=== PATIENT | female | born 1985 | race Caucasian/White ===

== ENCOUNTER 2019-01-16 16:54 | Emergency (ER) | payer OTHER ==
[2019-01-16 17:06] VITALS: BP 116/64; RESP 18; TEMP 98.6
--- NOTE | 2019-01-16 18:25 | ED ---
General Adult HPI - General Chief complaint: Dental/Oral Stated complaint: dental abscess Time Seen by Provider: 01/16/19 17:11 Source: patient, RN notes reviewed, old records reviewed Mode of arrival: ambulatory Limitations: no limitations - History of Present Illness Initial comments: 33-year-old female patient presents ED with dental abscess. Patient reports that she has pain and swelling around her 29th tooth. Patient was seen by her primary care physician approximate 4 days ago and placed on penicillin. Patient states that the swelling has gotten worse. Patient was seen by her primary care today and presented to ED for abscess drainage. Patient denies any other complaints this time. Denies any chest pain shortness breath abdominal pain na usea vomiting diarrhea, fevers or chills. Patient states that there is no way that she can be . Systemic: Pt denies fatigue, fever/chills, rash. Pt denies weakness, night sweats, weight loss. Neuro: Pt denies headache, visual disturbances, syncope or pre-syncope. HEENT: Pt denies ocular discharge or irritation, otalgia, rhinorrhea, pharyngitis or notable lymphadenopathy. Cardiopulmonary: Pt denies chest pain, SOB, heart palpitations, dyspnea on exertion. Abdominal/GI: Pt denies abdominal pain, n/v/d. : Pt denies dysuria, burning w/ urination, frequency/urgency. Denies new onset urinary or bowel incontinence. MSK: Pt denies myalgia, loss of strength or function in extremities. Neuro: Pt denies new onset weakness, paresthesias. - Related Data Previous Rx's Medication Instructions Recorded Clindamycin [Cleocin] 450 mg PO Q8HR 7 Days capsule 01/16/19 Allergies Allergy/AdvReac Type Severity Reaction Status Date / Time No Known Allergies Allergy Verified 01/16/19 18:42 Review of Systems ROS Statement: Those systems with pertinent positive or pertinent negative responses have been documented in the HPI. ROS Other: All systems not noted in ROS Statement are negative. Past Medical History Past Medical History: No Reported History History of Any Multi-Drug Resistant Organisms: None Reported Past Surgical History: Adenoidectomy, Tonsillectomy Smoking Status: Current every day smoker Past Alcohol Use History: Occasional Past Drug Use History: Marijuana General Exam - General Exam Comments Initial Comments: Constitutional: NAD, AOX3, Pt has pleasant affect. HEENT: NC/AT, trachea midline, neck supple, no lymphadenopathy. Posterior pharynx non erythematous, without exudates. External ears appear normal, without discharge. Mucous membranes moist. Eyes PERRLA, EOM intact. There is no scleral icterus. No pallor noted. Mild amount of swelling and erythema noted at 29th tooth, mild tenderness to palpation, small amount of fluctuance. Incision drainage revealed a small amount of pus. Cardiopulmonary: RRR, no murmurs, rubs or gallops, no JVD noted. Lungs CTAB in anterior and posterior priest. No peripheral edema. Abdominal exam: Abdomen soft and non-distended. Abdomen non-tender to palpation in all 4 quadrants. Bowel sounds active in LLQ. No hepatosplenomegaly. No ecchymosis Neuro: CN II-XII grossly intact. No nuchal rigidity. No raccon eyes, no zamora sign, no hemotympanum. No cervical spinal tenderness. MSK: No posterior calf tenderness bilaterally, homans sign negative bilaterally. Posterior tibialis and radial pulse +2 bilaterally. Sensation intact in upper and lower extremities. Full active ROM in upper and lower extremities, 5/5 stregnth. Limitations: no limitations Course Vital Signs 01/16/19 17:00 Temperature 98.6 F Pulse Rate 121 H Respiratory 18 Rate Blood Pressure 116/64 O2 Sat by Pulse 99 Oximetry Procedures - Incision & Drainage Consent Obtained: verbal consent Indication: dental abscess Site: other (29th tooth) Size (cm): 1 Needle Aspiration Performed?: Yes I&D Drainage Obtained: Pus, Blood Patient Tolerated Procedure: well Medical Decision Making - Medical Decision Making 33-year-old female patient presents ED with dental abscess. Patient reports that she has pain and swelling around her 29th tooth. Patient was seen by her primary care physician approximate 4 days ago and placed on penicillin. Patient states that the swelling has gotten worse. Patient was seen by her primary care today and presented to ED for abscess drainage. Patient denies any other complaints this time. Denies any chest pain shortness breath abdominal pain nausea vomiting diarrhea, fevers or chills. Patient states that there is no way that she can be . Patient vital signs initially displayed mild tachycardia likely secondary to pain. Resolved without intervention. Physical exam displayed: Mild amount of swelling and erythema noted at 29th tooth, mild tenderness to palpation, small amount of fluctuance. Incision drainage revealed a small amount of pus. Patient discharged with clindamycin. Patient will follow-up with dentist and PCP tomorrow. Patient will return to ER if condition worsens. Case discussed with Dr. Funk. Disposition Clinical Impression: Dental abscess Disposition: HOME SELF-CARE Condition: Stable Instructions (If sedation given, give patient instructions): Dental Abscess (ED) Additional Instructions: Patient to adhere to previously discussed treatment plan and will take medication(s) as directed. Patient to follow up with PCP in 1-2 days. Patient to return to ED if symptoms do not improve. follow-up with dentist and primary care provider tomorrow. Return to ER if condition worsens. Prescriptions: Clindamycin [Cleocin] 450 mg PO Q8HR 7 Days capsule Is patient prescribed a controlled substance at d/c from ED?: No Referrals: Simon Constantino DO [Primary Care Provider] - 1-2 days Cherie Delgado DDS [STAFF PHYSICIAN] - 1-2 days Ruben Gomez DDS [STAFF PHYSICIAN] - 1-2 days Bibiana Noe DDS [STAFF PHYSICIAN] - 1-2 days
[2019-01-16] MEDS ORDERED: ACET/COD 300 MG/30 MG STARTER PACK 6 TAB BTL PO STA (18:45)
[2019-01-16 18:49] VITALS: PULSE 70
== END 2019-01-16 18:49 | disposition home or self-care (01) ==
LOC: EC 16:54
DX: K04.7 Periapical abscess without sinus (principal); F17.200 Nicotine dependence, unspecified, uncomplicated
CPT/HCPCS: 41800; 99283

== ENCOUNTER 2020-06-07 16:57 | Emergency (ER) | payer OTHER ==
[2020-06-07 17:22] VITALS: BP 99/54; PULSE 73; RESP 18; TEMP 98
[2020-06-07] MEDS ORDERED: PENICILLIN VK 500MG STARTER 4 TAB BTL PO STA (17:30)
--- NOTE | 2020-06-07 17:40 | ED ---
General Adult HPI - General Chief complaint: Dental/Oral Stated complaint: Tooth Pain Time Seen by Provider: 06/07/20 17:24 Source: patient, RN notes reviewed Mode of arrival: ambulatory Limitations: no limitations - History of Present Illness Initial comments: 35-year-old female without any significant past medical problems presents to the emergency department for a chief complaint of right lower tooth pain. Patient reports that she lost a tooth about a year ago and has had pain since that time. However in the past week it has worsened. Patient believes she has a dental infection. Patient denies any swelling to the face or fevers. Denies any trismus or sublingual edema. Denies any difficulty swallowing or breathing.Patient has no other complaints at this time including shortness of breath, chest pain, abdominal pain, nausea or vomiting, headache, or visual changes. - Related Data Previous Rx's Medication Instructions Recorded Clindamycin [Cleocin] 450 mg PO Q8HR 7 Days capsule 01/16/19 Penicillin V Potassium [Pen Vee K] 500 mg PO Q6H 10 Days #40 tablet 06/07/20 Allergies Allergy/AdvReac Type Severity Reaction Status Date / Time No Known Allergies Allergy Verified 06/07/20 17:21 Review of Systems ROS Statement: Those systems with pertinent positive or pertinent negative responses have been documented in the HPI. ROS Other: All systems not noted in ROS Statement are negative. Past Medical History Past Medical History: No Reported History History of Any Multi-Drug Resistant Organisms: None Reported Past Surgical History: Adenoidectomy, Tonsillectomy Smoking Status: Current some day smoker Past Alcohol Use History: Occasional Past Drug Use History: Marijuana General Exam Limitations: no limitations General appearance: alert, in no apparent distress Head exam: Present: atraumatic, normocephalic, normal inspection Eye exam: Present: normal appearance, PERRL, EOMI. Absent: scleral icterus, conjunctival injection, periorbital swelling ENT exam: Present: normal exam, mucous membranes moist, TM's normal bilaterally, normal external ear exam, other (no facial edema or sublingual edema). Absent: normal oropharynx (tooth missing on tooth 28) Neck exam: Present: normal inspection, full ROM. Absent: tenderness, meningismus, lymphadenopathy Respiratory exam: Present: normal lung sounds bilaterally. Absent: respiratory distress, wheezes, rales, rhonchi, stridor Cardiovascular Exam: Present: regular rate, normal rhythm, normal heart sounds. Absent: systolic murmur, diastolic murmur, rubs, gallop, clicks GI/Abdominal exam: Present: soft, normal bowel sounds. Absent: distended, tenderness, guarding, rebound, rigid Neurological exam: Present: alert Course Vital Signs 06/07/20 17:18 Temperature 98.0 F Pulse Rate 73 Respiratory 18 Rate Blood Pressure 99/54 O2 Sat by Pulse 100 Oximetry Medical Decision Making - Medical Decision Making Patient was started on penicillin. I do not see any abscess noted. Patient does have missing tooth noted area of tooth 28. At this time patient will follow up with her dentist. She'll return for any worsening symptoms. She is requesting a work note. Disposition Clinical Impression: Pain, dental Disposition: HOME SELF-CARE Condition: Good Instructions (If sedation given, give patient instructions): Toothache (ED) Additional Instructions: Please take antibiotic as directed. Please take Motrin and Tylenol for pain. Follow up with a dentist as soon as possible. Return to the emergency room for any worsening symptoms. [facility] [facility] [id number] (existing clients only) New clients: [phone] 1st consult: $50 (includes XRs) Usually 30% less than private dentist for visits after. [employer] [facility] [employer] Have to pay $50 for Xrays and rest is covered [phone] Prescriptions: Penicillin V Potassium [Pen Vee K] 500 mg PO Q6H 10 Days #40 tablet Is patient prescribed a controlled substance at d/c from ED?: No Referrals: Elba Prabhakar MD [REFERRING] - 1-2 days Time of Disposition: 17:33
== END 2020-06-07 17:59 | disposition home or self-care (01) ==
LOC: EC 16:57
DX: K08.89 Other specified disorders of teeth and supporting structures (principal); F17.200 Nicotine dependence, unspecified, uncomplicated
CPT/HCPCS: 99282

== ENCOUNTER → 2020-07-28 | Outpatient (CLI) | payer OTHER | END | disposition home or self-care (01) | LOC: LABWHC1 14:36 | PROVIDERS: ATTEND Emergency Medicine | DX: Z20.828 Contact with and (suspected) exposure to other viral communicable diseases (principal) | CPT/HCPCS: U0003; C9803 ==